=== PATIENT | female | born 1965 | race African-American/Black ===

== ENCOUNTER 2016-09-10 15:08 | Emergency (ER) | payer MEDICAID ==
[~2016-09-10] VITALS: Ht 162.6 cm; Wt 78.0 kg
[2016-09-10 18:19] LABS: BASOPHILS % 0.7 % (0.0-2.0); EOSINOPHILS % 1.4 % (0.0-5.0); HEMATOCRIT. 37.6 % (36.0-48.0); HEMOGLOBIN. 12.6 g/dL (12.0-16.0); LYMPHOCYTES % 23.2 % (20.0-50.0); MEAN CORPUSCULAR HEMOGLOBIN 28.3 pg (28.0-32.0); MEAN CORPUSCULAR VOLUME 84.6 fL (81.0-99.0); MEAN PLATELET VOLUME 7.8 fl (7.4-10.4); MONOCYTES % 10.3 % (2.0-8.0); NEUTROPHILS % 64.4 % (40.0-76.0); PLATELET 318 x1000/uL (130-400); RED BLOOD CELL COUNT 4.44 mill/uL (4.2-5.4); RED CELL DISTRIBUTION WIDTH 13.9 % (11.6-14.6)
[2016-09-10 18:32] LABS: CARBON DIOXIDE 29 mEq/L (21-32); CHLORIDE 104 mEq/L (98-107)
[2016-09-10 19:06] VITALS: BP 142/78
== END 2016-09-10 20:02 | disposition home or self-care (01) ==
LOC: ER 17:16
DX: E01.0 Iodine-deficiency related diffuse (endemic) goiter (principal); I10 Essential (primary) hypertension
CPT/HCPCS: 36415; 70490; 80048; 84439; 84443; 85025; 99285

== ENCOUNTER 2017-12-03 10:48 | Emergency (ER) | payer MEDICAID, OTHER ==
[~2017-12-03] VITALS: Ht 160 cm; Wt 74.0 kg
[2017-12-03] MEDS ORDERED: CYCLOBENZAPRINE 10MG TABLET PO ONE (12:30)
[2017-12-03] MEDS ORDERED: HYDROCODONE/ACETAMINOPHEN 5/325MG TABLET PO ONE (12:30)
[2017-12-03 14:12] VITALS: BP 143/88
== END 2017-12-03 14:13 | disposition home or self-care (01) ==
LOC: ER 12:55
DX: M25.551 Pain in right hip (principal)
CPT/HCPCS: 73502; 99284

== ENCOUNTER 2018-07-13 11:05 | Emergency (ER) | payer OTHER ==
[~2018-07-13] VITALS: Ht 160 cm; Wt 76.0 kg
[2018-07-13] MEDS ORDERED: KETOROLAC 60MG/2ML VIAL IM ONE (15:00)
[2018-07-13 16:28] VITALS: BP 156/90
== END 2018-07-13 16:29 | disposition home or self-care (01) ==
LOC: ER 11:05
DX: S93.402A Sprain of unspecified ligament of left ankle, initial encounter (principal); S93.602A Unspecified sprain of left foot, initial encounter; I10 Essential (primary) hypertension; W00.0XXA Fall on same level due to ice and snow, initial encounter; Y93.89 Activity, other specified; Y92.89 Other specified places as the place of occurrence of the external cause; Z98.51 Tubal ligation status
CPT/HCPCS: 73610; 73630; 96372; 99283